=== PATIENT | male | born 1975 | race Caucasian/White ===

== ENCOUNTER → 2017-06-28 | Outpatient (CLI) | payer OTHER ==
[~2017-06-28] MED LIST: ALDACTONE25 MG PO; CHOLESTEROL MED PO; EFFER-K10 MEQ PO; FLEXERIL10 MG PO; GEMFIBROZIL600 MG PO; LASIX20 MG PO; LEVOFLOXACIN500 MG PO; Motrin,Rufen800 MG PO; NAPROSYN500 MG PO; VALTREX500 MG PO
[2017-06-28 06:10] LABS: HEMOGLOBIN 14.9 g/dl (14.0-18.0); MEAN CELL VOLUME 89.6 fl (80.0-94.0); MEAN CORPUSCULAR HGB 29.7 pg (27.0-31.0); MEAN CORPUSCULAR HGB CONC 33.1 g/dl (33.0-37.0); MEAN PLATELET VOLUME 9.9 fl (9.6-12.3); RED BLOOD COUNT 5.02 10*6/uL (4.50-5.90); RED CELL DISTRI WIDTH 13.4 % (0-14.5); WHITE BLOOD COUNT 8.1 10*3/uL (4.8-10.8)
[2017-06-28 06:44] LABS: ALBUMIN 3.7 gm/dl (3.1-4.5); ALKALINE PHOSPHATASE 65 U/L (45-117); BILIRUBIN, TOTAL 0.3 mg/dl (0.2-1.0); BUN 15 mg/dl (7-24); CARBON DIOXIDE 29 mmol/L (21-32); CHLORIDE 104 mmol/L (98-107); CHOLESTEROL 215 mg/dL (<200); EST GLOM FILT AFRICAN AMERICAN > 60 ml/min; GLUCOSE 103 mg/dL (65-99); HDL CHOLESTEROL 31 mg/dl (40-60); LDL CHOLESTEROL 124 mg/dL (9-159); POTASSIUM 3.6 mmol/L (3.5-5.1); SGOT/AST 16 IU/L (3-35); SGPT/ALT 22 U/L (12-78); SODIUM 140 mmol/L (136-145); THYROXINE (T4) TOTAL 7.8 ug/dl (4.5-12.1); TOTAL PROTEIN 7.9 gm/dL (6.4-8.2); TRIGLYCERIDES 299 mg/dl (<150); VLDL CHOLESTEROL 60 mg/dL (6-40)
== END | disposition home or self-care (01) ==
LOC: LAB 05:36
PROVIDERS: Internal Medicine
DX: E78.00 Pure hypercholesterolemia, unspecified (principal); R60.9 Edema, unspecified; E55.9 Vitamin D deficiency, unspecified

== ENCOUNTER 2017-10-01 19:33 | Emergency (ER) | payer OTHER ==
[~2017-10-01] VITALS: Ht 167.6 cm; Wt 127.0 kg
[2017-10-01] MEDS ORDERED: CEPHALEXIN500 M1 PO (20:57)
== END 2017-10-01 21:00 | disposition home or self-care (01) ==
LOC: ED 19:33
DX: S61.211A Laceration without foreign body of left index finger without damage to nail, initial encounter (principal); Z88.2 Allergy status to sulfonamides; Z88.8 Allergy status to other drugs, medicaments and biological substances; W27.8XXA Contact with other nonpowered hand tool, initial encounter; Y93.89 Activity, other specified; Y92.89 Other specified places as the place of occurrence of the external cause; Y99.8 Other external cause status

== ENCOUNTER → 2019-03-02 | Outpatient (CLI) | payer OTHER ==
[~2019-03-02] MED LIST changes: +ATORVASTATIN CA40 M1 PO; +CEPHALEXIN500 M1 PO; +FISH OIL 1,0001 EAC2 PO; +FUROSEMIDE40 MG PO; +Ipratropium Brom3 ML INH; +LEVAQUIN750 M1 PO; +LOPRESSOR25 MG PO; +OXYCODONE HCL5 MG PO; +POTASSIUM CHLO10 ME5 PO; +TYLENOL325 M2 PO
[2019-03-02 09:10] LABS: HEMATOCRIT 44.2 % (42.0-52.0); HEMOGLOBIN 13.9 g/dl (14.0-18.0); MEAN CELL VOLUME 93.2 fl (80.0-94.0); MEAN CORPUSCULAR HGB 29.3 pg (27.0-31.0); MEAN CORPUSCULAR HGB CONC 31.4 g/dl (33.0-37.0); MEAN PLATELET VOLUME 10.2 fl (9.6-12.3); RED BLOOD COUNT 4.74 10*6/uL (4.50-5.90); RED CELL DISTRI WIDTH 13.3 % (0-14.5); WHITE BLOOD COUNT 6.4 10*3/uL (4.8-10.8)
[2019-03-02 09:27] LABS: ALBUMIN 3.7 gm/dl (3.1-4.5); BUN 15 mg/dl (7-24); CHLORIDE 109 mmol/L (98-107); SODIUM 141 mmol/L (136-145)
[2019-03-02 09:39] LABS: ALKALINE PHOSPHATASE 62 U/L (45-117); CHOLESTEROL 185 mg/dL (<200); CREATININE 0.95 mg/dL (0.70-1.30); HDL CHOLESTEROL 29 mg/dl (40-60); LDL CHOLESTEROL 92 mg/dL (9-159); SGOT/AST 17 IU/L (3-35); SGPT/ALT 29 U/L (12-78); TOTAL PROTEIN 7.9 gm/dL (6.4-8.2); TRIGLYCERIDES 318 mg/dl (<150); VLDL CHOLESTEROL 64 mg/dL (6-40)
== END | disposition home or self-care (01) ==
LOC: LAB 08:13
PROVIDERS: Physician Assistant
DX: E78.5 Hyperlipidemia, unspecified (principal); R60.9 Edema, unspecified

== ENCOUNTER → 2019-03-02 | Outpatient (CLI) | payer OTHER ==
--- NOTE | ~2019-03-02 | EKG ---
[place], [place] ELECTROCARDIOGRAM REPORT NAME: SASCHA LEMUS SR UNIT #: [id number] ROOM: DOCTOR: PREM DRAFT REPORT BIRTHDATE: [birth year] [facility] Test Date: 2019-03-02 Test Time: 09:04:46 Pat Name: SASCHA LEMUS Department: Room: Gender: Requirements Analyst: Jeanna Miller : 1975 Requested By: ENA PEOPLES Order Number: [id number] Reading MD: Cisco Angel Measurements Intervals [place] Rate: 65 P: 37 [place]: 216 QRS: 66 QRSD: 99 T: 79 QT: 438 QTc: 456 Interpretive Statements Sinus rhythm Prolonged [place] interval Baseline wander in lead(s) V5 No previous ECG available for comparison Electronically Signed On 03-04-2019 4:52:06 PDT by Cisco Angel CM:EKGRPT:ELECTROCARDIOGRAM REPORT [id number] ENA AMARO DRAFT REPORT ENA PEOPLES
== END | disposition home or self-care (01) ==
LOC: LAB 08:11
DX: Z01.818 Encounter for other preprocedural examination (principal); M75.101 Unspecified rotator cuff tear or rupture of right shoulder, not specified as traumatic

== ENCOUNTER 2019-03-12 19:42 | Inpatient (IN) | payer OTHER ==
[~2019-03-12] VITALS: Ht 167.6 cm; Wt 152.0 kg
--- NOTE | ~2019-03-12 | CON ---
[place], [place] REPORT OF CONSULTATION NAME: SASCHA LEMUS SR [facility] #: [id number] UNIT #: [id number] ROOM: 412 DOCTOR: JOHNNIE JOHNSTON MDLOIDA BIRTHDATE: [birth year] DOS: 03/13/2019 PULMONARY CONSULTATION, EVALUATION AND MANAGEMENT CONSULTATION REQUESTED BY: Hospitalist service. REASON FOR CONSULTATION: For assessment of acute pneumonia and abnormal respiratory symptoms. HISTORY OF PRESENT ILLNESS: A 43-year-old white male patient who has been unknown to me. The patient has been noted with the rotator cuff surgery that was performed for the patient in one of the hospitals in [facility] by Dr. Mccartney. The surgery was completed for this patient and he was discharged home. The patient was noted with symptoms of increased shortness of breath after he was discharged. He has been complaining of pain in the chest as well, which are described across the chest. The patient was reporting symptoms of coughing with the sputum expectoration as well. The patient was admitted to the hospital. The patient's chest x-ray noted abnormal. The patient was reported with finding of acute pneumonia in the right lung. The patient has been ordered CTA of the chest that could not be done, as the patient unable to fit into the CT scan machine. So, CT scan was cancelled and that the patient has been ordered V/Q scan by the primary care attending, which was noted negative for pulmonary embolism. The patient was also given the Lovenox 1 mg/kg body weight for the patient on the diagnosis of pulmonary embolism excluded. He has reported reduction in symptoms of shortness of breath, cough has been noted mild without any sputum expectoration at the present time. Denies symptoms of chest pain at this time. REVIEW OF SYSTEMS: CONSTITUTIONAL: He does report symptoms of fatigue and tiredness. Denies any fever or chills at home. EYES: Denies burning, redness, or tenderness. EARS, NOSE, AND THROAT SYMPTOMS: Denies sore throat, hoarseness, otalgia, postnasal drainage or epistaxis. CARDIOVASCULAR SYSTEM: Denies anginal pain, edema, or pain of lower extremities. GASTROINTESTINAL: Denies dysphagia, nausea, vomiting, diarrhea, abdominal pain, hematemesis, melena or hematochezia. SKIN: Denies any lesions or rashes. MUSCULOSKELETAL: Recent surgery of the shoulder, which required the sling on the right side and has an epidural anesthesia, which was noted in progress after discharge from [facility] for pain management. CENTRAL NERVOUS SYSTEM: Denies dizziness, headache, diplopia or syncopal episodes. Remaining systems were reviewed. They were noted all negative. PAST MEDICAL HISTORY: 1. Noted rotator cuff tear bilaterally with the current surgery of the left rotator cuff tear for the patient 2 days ago in [facility] by Dr. Mccartney. [place], [place] REPORT OF CONSULTATION NAME: SASCHA LEMUS SR UNIT #: [id number] ROOM: [facility] DOCTOR: LOIDA TATUM MD BIRTHDATE: [birth year] 2. Chronic obesity. 3. Heavy nicotine dependence history. 4. Hyperlipidemia. PAST SURGICAL HISTORY: 1. Dental surgery. 2. Tonsillectomy as child. 3. Status post right rotator cuff surgery. SOCIAL HISTORY: The patient lives at home. He has been noted tobacco use 2 packs of cigarettes per day since teenager. Denies history of alcohol use. FAMILY HISTORY: The patient's father with complication of myocardial infarction and the mother also with complication related to myocardial infarction. HOME MEDICATIONS: Listed as potassium chloride, OxyContin, [place] 3, oral Lasix, Lipitor, and Tylenol. DRUG ALLERGIES: 1. SULFA DRUGS. 2. VITAMIN D3. CURRENT MEDICATIONS: Administered for the patient on this hospitalization were reviewed and noted as Lipitor, Mucinex, Solu-Medrol 60 mg every 8 hours, IV vancomycin, IV Zosyn and Levaquin. PHYSICAL EXAMINATION: GENERAL: This is a 43-year-old male currently sitting on the bed this morning of assessment. VITAL SIGNS: Height of 5 feet 6 inches, weight of 335 pounds, BMI of 54 with severe morbid obesity. The temperature noted normal, respiratory rate of 29-18, heart rate of 98-110, blood pressure 142/82-157/94. Pulse oxygen saturation on 3 liters nasal cannula at rest on room air 95% saturation recorded. HEENT: Examination shows head was atraumatic with chronic obesity. Decreased posterior pharyngeal space, high tongue base, crowding of soft tissue structures. CARDIOVASCULAR: S1, S2 audible. LUNGS: Decreased breath sounds in the right lower lung. Remaining lung was clear of any wheezing or crackles. ABDOMEN: Soft, nontender. Bowel sounds present. EXTREMITIES: The patient was noted with immobilization of the right upper extremity. No other gross deformities. CENTRAL NERVOUS SYSTEM: The patient's cranial nerves 2-12 intact with limited exam. SKIN: Visible skin, no lesions or rashes seen. LABORATORY DATA: The troponin yesterday on admission was normal. CBC that was done yesterday has a normal hemoglobin, hematocrit and platelets. PT/PTT was noted as normal. CMP of 03/12/2019 for this patient has normal BUN and [place], [place] REPORT OF CONSULTATION NAME: SASCHA LEMUS SR UNIT #: [id number] ROOM: 412 DOCTOR: JOHNNIE JOHNSTON MD,LOIDA BIRTHDATE: [birth year] creatinine, glucose 182. AST, ALT mildly elevated. Lactic acid 1.1. BMP of the patient that was done this morning, normal BUN and creatinine, glucose mildly elevated. The CBC of the patient this morning, WBC count 12.8, hemoglobin 13.1, platelet count was normal. Chest x-ray were noted elevation of right hemidiaphragm and possible combination with area of atelectasis, small pleural fluid. Ultrasound of the chest was performed on right side of the patient shows area of consolidation and there was no evidence of significant pleural fluid, very small pleural fluid was noted. V/Q scan that was completed yesterday was noted with a low probability for pulmonary embolism. The patient stated that he has a chest x-ray, which were done for this patient in [facility], which I did review for the patient was actually of the shoulder, not of the chest, unable to assess further because of the lack of the PA and lateral chest x-ray. IMPRESSION: 1. The patient will be currently admitted to the hospital with finding of atelectasis and possibility of elevation of hemidiaphragm, acute pneumonia, community-acquired infection would be considered. 2. The patient with a recent surgery of the right shoulder as well. 3. Morbid obesity as well by history. 4. Chronic heavy nicotine abuse without any known diagnosis of chronic obstructive pulmonary disease or bronchial asthma. PLAN OF MANAGEMENT: At this time, the patient would be ordered discontinuation of the Solu-Medrol as well as the broad-spectrum intravenous antibiotics. The community-acquired infection will be treated for the patient at this time with the continuation of the Levaquin. The patient has a primary antibiotic. Addition of the vancomycin for the patient in case if the patient would be noted with abnormal culture results. CT scan of the chest certainly cannot be done for the patient for further assessment at this time and will place on hold. Possibility of right diaphragmatic paralysis has been also considered in the differential diagnosis. Continue bronchodilator for this patient as well to help mobilize secretions. Usual care with other additional treatment changes will be done based on progression of illness. Follow up with the chest x-ray in the morning to reassess. Consider home discharge on oral antibiotics for the patient based on the further improvement in the respiratory symptoms and status and review of the other data information once become available, especially the blood cultures. Assessment and management was discussed with Dr. Jefry William who is the attending for this patient today as well personally. [place], [place] REPORT OF CONSULTATION NAME: MARIAH ROBERTSSASCHA Kaia UNIT #: [id number] ROOM: 412 DOCTOR: LOIDA TATUM MD BIRTHDATE: [birth year] LOIDA BLAIR MD CM:CONSTR:REPORT OF CONSULTATION 1400 03/27/19 0842 interface
--- NOTE | ~2019-03-12 | CON ---
[place], [place] REPORT OF CONSULTATION [id number] #: [id number] ROOM: 412 DOCTOR: JOSEPH MCWILLIAMS MD BIRTHDATE: [birth year] DOS: 03/13/2019 REASON FOR CONSULTATION: Sinus tachycardia, shortness of breath. HISTORY OF PRESENT ILLNESS: The patient is a 43-year-old gentleman with history of moderate obesity, dyslipidemia, presented to the hospital for shortness of breath which is on exertion. He recently had right wrist rotator cuff surgery a couple of days ago in [place]. He did have some cough with some sputum production as well as complaining of some achy chest pain in the midsternal area at rest. No associated symptoms. The pain is like an ache and lasts for a few seconds to minutes, occasional radiation to the left shoulder and back. Cardiology consulted for further recommendation due to his sinus tachycardia but he denies any exertional chest pain or palpitations, he only complained of shortness of breath, which is somewhat better now. No palpitation, no dizziness, no PND, no orthopnea. No fever and chills. No nausea, vomiting, diarrhea. No bladder symptoms. No neurologic symptoms. REVIEW OF SYSTEMS: Review of the 10 systems negative except as mentioned above. PAST MEDICAL HISTORY: 1. Hypertension. 2. Dyslipidemia. 3. Morbid obesity. 4. Chronic edema. PAST SURGICAL HISTORY: History of tonsillectomy and a right rotator cuff repair. SOCIAL HISTORY: Does not smoke or drink, does not use illicit drugs. He quit smoking several years ago. FAMILY HISTORY: Father in his 50s from heart attack. Mother at the age of 69 from heart attack. She had history of hypertension, diabetes. ALLERGIES: The patient is allergic to SULFA and VITAMIN D3. HOME MEDICATIONS: Reviewed. PHYSICAL EXAMINATION: VITAL SIGNS: Blood pressure 142/82, pulse 110, respiratory rate was 24, weight 151.9 kilos, BMI 54. GENERAL: Alert, comfortable, in no acute distress. HEENT: Pupils are round and equal. No jaundice. NECK: Supple, no distended neck veins, no carotid bruit. CHEST: Symmetrical, nontender. LUNGS: A few scattered rhonchi, diminished at bases. HEART: Regular rhythm, slightly tachycardic, no S3, no palpable thrills. I did not appreciate any murmurs, but distant heart sounds. ABDOMEN: Morbidly obese, nontender. Bowel sounds normal. EXTREMITIES: Showed 1+ edema. Distal pulses palpable. [place], [place] REPORT OF CONSULTATION NAME: SASCHA LEMUS SR UNIT #: [id number] ROOM: [facility] DOCTOR: JOSEPH MCWILLIAMS MD BIRTHDATE: [birth year] SKIN: Warm and dry. No cyanosis, no clubbing. RECTAL: Deferred. GENITOURINARY: Deferred. NEUROLOGIC: Alert, oriented. No focal neurologic deficit. PSYCHIATRIC: The patient is alert with good mood and affect. REVIEW OF THE DIAGNOSTIC TESTS: EKG, sinus tachycardia with some early repolarization. CBC, chemistry reviewed. Cardiac troponins are negative x 3. His stress test in 05/2016, unremarkable. Echo from 05/2016 unremarkable. IMPRESSION: 1. Sinus tachycardia, borderline tachycardia, asymptomatic, due to his dyspnea. 2. Shortness of breath, acute congestive heart failure, need to rule out pulmonary emboli. 3. Chronic diastolic heart failure. 4. Morbid obesity. 5. Dyslipidemia. 6. Acute respiratory failure. 7. Recent right shoulder surgery. 8. Possible pneumonia. RECOMMENDATIONS: 1. Start low-dose beta blockers and watch the heart rate and blood pressures. 2. We need to rule out pulmonary emboli and currently the patient on therapeutic dose of Lovenox. 3. The 2D echo was done and the patient had a finding showed normal LV function. 4. No further cardiac testing. Continue to watch his heart rate and blood pressures on his low dose beta blockers. 5. Above treatment and plan discussed with the patient and all questions answered. 6. No family at bedside at the time of my examination. JOSEPH MCWILLIAMS MD CM:CONSTR:REPORT OF CONSULTATION 1617 03/14/19 0613 interface
--- NOTE | ~2019-03-12 | PR ---
[place], [place] PROGRESS NOTE [id number] #: [id number] ROOM: 412 DOCTOR: JOHNNIE JOHNSTON MD,LOIDA BIRTHDATE: [birth year] DOS: 03/14/2019 PULMONARY PROGRESS NOTE SUBJECTIVE: He has been noted much improvement in respiratory symptoms. Shortness of breath is improving. There was mild cough, but no sputum expectoration, symptoms of chest pain, fever or chills. OBJECTIVE: VITAL SIGNS: This morning, normal temperature, respiratory rate 20, heart rate 108, blood pressure 136/92. Pulse oxygen saturation on room air was 95% saturation. HEENT: Head was atraumatic, eyes nonicterus. NECK: Supple. CARDIOVASCULAR: S1 and S2 audible. LUNGS: The patient was without any wheezing or crackles. Decreased breath sounds in the right lower portion of the lungs still persist. ABDOMEN: Soft and obese. EXTREMITIES: The patient was noted without any acute edema. LABORATORY AND DIAGNOSTIC DATA: Chest x-ray that was done PA and lateral view this morning was reviewed, shows atelectasis and/or infiltration combination in the right middle and right lower lobe and elevation of right hemidiaphragm still considered. IMPRESSION: The patient is currently with acute pneumonia, which has been treated, clinically responding to treatment. He could be discharged home with outpatient followup for the current abnormal finding to obtain a CT scan of the chest as necessary, later on follow up chest x-ray to determine if there is diaphragm paralysis or elevated or other etiologies. Supportive therapy, plan of management, and care plan of treatment. LOIDA BLAIR MD CM:PNTRANS 1315 0450 LOIDA JOHNSTON MD 03/15/19 0448 interface
--- NOTE | ~2019-03-12 | EKG ---
[place], [place] ELECTROCARDIOGRAM REPORT NAME: SASCHA LEMUS SR UNIT #: [id number] ROOM: 412 DOCTOR: PREM DRAFT REPORT BIRTHDATE: [birth year] [facility] Test Date: 2019-03-12 Test Time: 22:43:50 Pat Name: SASCHA LEMUS Department: Room: 412 Gender: M [employer] Attendant: Caroline Craig : 1975 Requested By: ISIDRO KENT Order Number: [id number] Reading MD: Cisco Angel Measurements Intervals [place] Rate: 109 P: 39 GA: 183 QRS: 57 QRSD: 95 T: 45 QT: 336 QTc: 453 Interpretive Statements Sinus tachycardia Compared to ECG 03/02/2019 09:04:46 Sinus rhythm no longer present First degree AV block no longer present Electronically Signed On 03-15-2019 8:58:30 PDT by Cisco Angel CM:EKGRPT:ELECTROCARDIOGRAM REPORT [id number] ISIDRO KENT MD EPIPHANY DRAFT REPORT ISIDRO KENT MD
--- NOTE | ~2019-03-12 | EKG ---
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: Yin Godinez : 1975 Requested By: ISIDRO KENT Order Number: [id number] Reading MD: Cisco Angel Measurements Intervals [place] Rate: 107 P: 46 DE: 188 QRS: 84 QRSD: 106 T: 24 QT: 354 QTc: 473 Interpretive Statements Sinus tachycardia Abnormal R-wave progression, late transition ST elev, probable normal early repol pattern Baseline wander in lead(s) I,II,aVR,aVL,aVF,V2,V3,V5,V6 Compared to ECG 03/02/2019 09:04:46 ST (T wave) deviation now present Sinus rhythm no longer present First degree AV block no longer present Electronically Signed On 03-15-2019 8:59:22 PDT by Cisco Angel CM:EKGRPT:ELECTROCARDIOGRAM REPORT [id number] ISIDRO KENT MD EPIPHANY DRAFT REPORT ISIDRO KENT MD
--- NOTE | ~2019-03-12 | EKG ---
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
[~2019-03-12 19:42] MED LIST changes: -ATORVASTATIN CA40 M1 PO; -FISH OIL 1,0001 EAC2 PO; -FUROSEMIDE40 MG PO; -Ipratropium Brom3 ML INH; -LEVAQUIN750 M1 PO; -LOPRESSOR25 MG PO; -OXYCODONE HCL5 MG PO; -POTASSIUM CHLO10 ME5 PO; -TYLENOL325 M2 PO
[2019-03-12 19:54] VITALS: BP 156/78
[2019-03-12] MEDS ORDERED: POTASSIUM CHLO10 ME5 PO (19:56)
[2019-03-12] MEDS ORDERED: OXYCODONE HCL5 MG PO (19:56)
[2019-03-12] MEDS ORDERED: FUROSEMIDE40 MG PO (19:57)
[2019-03-12] MEDS ORDERED: ATORVASTATIN CA40 M1 PO (19:57)
[2019-03-12 20:00] LABS: BASO # 0.1 10*3/uL (0.0-0.1); BASO % 0.5 % (0.0-1.0); EOS # 0.1 10*3/uL (0.0-0.4); EOS % 0.8 % (1.0-4.0); HEMATOCRIT 42.5 % (42.0-52.0); HEMOGLOBIN 13.8 g/dl (14.0-18.0); LYMPH # 2.2 10*3/uL (1.3-4.4); LYMPH % 21.1 % (27.0-41.0); MEAN CELL VOLUME 92.6 fl (80.0-94.0); MEAN CORPUSCULAR HGB 30.1 pg (27.0-31.0); MEAN CORPUSCULAR HGB CONC 32.5 g/dl (33.0-37.0); MEAN PLATELET VOLUME 9.9 fl (9.6-12.3); MONO # 0.9 10*3/uL (0.1-1.0); MONO % 8.7 % (3.0-9.0); NEUT # 7.2 10*3/uL (2.3-7.9); PLATELET COUNT AUTOMATED 286 10*3/uL (130-400); RED BLOOD COUNT 4.59 10*6/uL (4.50-5.90); RED CELL DISTRI WIDTH 13.6 % (0-14.5); WHITE BLOOD COUNT 10.6 10*3/uL (4.8-10.8)
[2019-03-12 20:16] LABS: ACT PARTIAL THROMBO TIME 23.1 SECONDS (20.8-31.5); INTERNATIONAL NORM RATIO 0.9 (2.0-3.5)
[2019-03-12 20:19] LABS: ALBUMIN 3.6 gm/dl (3.1-4.5); ALKALINE PHOSPHATASE 75 U/L (45-117); BUN 12 mg/dl (7-24); CHLORIDE 105 mmol/L (98-107); CREATININE 1.05 mg/dL (0.70-1.30); POTASSIUM 3.9 mmol/L (3.5-5.1); SGOT/AST 88 IU/L (3-35); SGPT/ALT 94 U/L (12-78); SODIUM 139 mmol/L (136-145); TOTAL PROTEIN 7.9 gm/dL (6.4-8.2); TROPONIN I < 0.015 ng/ml (<0.045)
--- NOTE | 2019-03-12 20:19 | NUR ---
PATIENT UP TO RESTROOM AND PROVIDING WITH URINE SPECIMEN. DENIES CHEST PAIN AT THIS TIME. WILL CONTINUE TO MONITOR.
[2019-03-12 21:32] VITALS: BP 148/69
[2019-03-12 23:04] VITALS: BP 147/71
--- NOTE | 2019-03-12 23:05 | NUR ---
RIGHT SHOULDER SURGICAL WOUND THAT WAS DRESSED YESTERDAY. NO PHOTO TAKEN AT THIS TIME.
[2019-03-12] MEDS ORDERED: TYLENOL325 M2 PO (23:55)
[2019-03-12] MEDS ORDERED: FISH OIL 1,0001 EAC2 PO (23:59)
[2019-03-13] VITALS: BP 157/94
--- NOTE | 2019-03-13 00:25 | NUR ---
NOTIFIED DR HAY OF PATIENTS MED REC UP TO DATE.
--- NOTE | 2019-03-13 03:22 | NUR ---
NOTIFIED DR PRATHER OF PATIENT NEEDING HOME OXY FOR SHOULDER PAIN. STATED HE WOULD TAKE CARE OF IT.
[2019-03-13 05:52] LABS: BASO % 0.2 % (0.0-1.0); EOS % 0.1 % (1.0-4.0); HEMATOCRIT 41.6 % (42.0-52.0); HEMOGLOBIN 13.1 g/dl (14.0-18.0); LYMPH % 7.5 % (27.0-41.0); MEAN CELL VOLUME 92.4 fl (80.0-94.0); MEAN CORPUSCULAR HGB 29.1 pg (27.0-31.0); MEAN CORPUSCULAR HGB CONC 31.5 g/dl (33.0-37.0); MEAN PLATELET VOLUME 10.1 fl (9.6-12.3); MONO # 0.2 10*3/uL (0.1-1.0); MONO % 1.8 % (3.0-9.0); NEUT # 11.5 10*3/uL (2.3-7.9); NEUT % 89.6 % (47.0-73.0); PLATELET COUNT AUTOMATED 284 10*3/uL (130-400); RED CELL DISTRI WIDTH 13.7 % (0-14.5); WHITE BLOOD COUNT 12.8 10*3/uL (4.8-10.8)
[2019-03-13 06:04] LABS: BUN 11 mg/dl (7-24); CHLORIDE 106 mmol/L (98-107); CHOLESTEROL 179 mg/dL (<200); CREATININE 1.03 mg/dL (0.70-1.30); HDL CHOLESTEROL 40 mg/dl (40-60); LDL CHOLESTEROL 113 mg/dL (9-159); PHOSPHOROUS 1.6 mg/dL (2.5-4.9); POTASSIUM 3.5 mmol/L (3.5-5.1); SODIUM 139 mmol/L (136-145); TRIGLYCERIDES 132 mg/dl (<150); VLDL CHOLESTEROL 26 mg/dL (6-40)
--- NOTE | 2019-03-13 06:13 | NUR ---
NUCLEAR MED HERE TO GET PATIENT AT THIS TIME.
--- NOTE | 2019-03-13 06:50 | NUR ---
PATIENT RETURNED FROM LUNG SCAN AT THIS TIME.
--- NOTE | 2019-03-13 07:27 | NUR ---
MARIAH ROBERTSSASCHA [id number] Please refer to the physician's history and physical for past medical history, comorbid conditions, and allergies. Diagnosis: DYSPNEA SEPSIS PNEUMONIA Luis Fernando Score: 22,LOW OR NO RISK WOUND DESCRIPTIONS: Patient has dressing intact to right shoulder. Patient stated that he had surgery on 03/11/19 and is not to remove the dressing until saturday. Patient stated Dr. Mccartney performed the surgery at [facility] and has a follow up appointment with Dr. Mccartney on 03/23/19. Surface the patient is resting on: Isoflex SKIN PREVENTION RECOMMENDATION: 1. Pressure redistribution support surface as appropriate 2. Elevate heels 3. Remove boots/TEDS every shift and reapply 4. Head of bed 30 degrees as tolerated 5. Assess nutrition and hydration 6. Manage moisture 7. Avoid the use of containment devices while in bed 8. Use absorptive products on surfaces limit layers of linens on bed 9. Turn and reposition every 1-2 hours in bed and every 1 hour in chair as tolerated 10. Weight shifts every 15 minutes while up in chair 11. Offloading with pillows or device to keep heels elevated off bed 12. Monitor skin at least every shift 13. Inspect under medical devices twice a day WOUND TREATMENT RECOMMENDATIONS: Keep dressing intact to right shoulder and keep follow up appointment on 03/23/[address] Mccartney
[2019-03-13 08:00] VITALS: BP 120/80
--- NOTE | 2019-03-13 08:00 | NUR ---
0903: MEDICATED WITH PO TYLENOL ORDERED PER PT REQUEST FOR C/O PAIN TO R SHOULDER. 0800: R SHOULDER DRESSING D/I W/ BRACE IN PLACE. ROPIVOCAINE LINE/DRESSING D/I AND PUMP SEEMS TO BE FUNCTIONING WITH 161.5CC RESIDUAL. 1030: IN ROOM, ECHO BEING DONE.
--- NOTE | 2019-03-13 08:11 | NUR ---
DR BLAIR NOTIFIED OF CONSULT.
--- NOTE | 2019-03-13 08:11 | NUR ---
MESSAGE LEFT FOR DR FRANCE CONSULT.
--- NOTE | 2019-03-13 09:00 | NUR ---
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 Patient states lives at with family. There are few steps in the home. Physician: melina hale [facility]acy: [facility] Home health services: none Patient's level of ADLs: INDEPENDENT Patient has working utilities: all working DME: none Follow-up physician's appointment after d/c: will be made by hospitalist nurse director upon discharge Does patient want to access PORTAL?: no Discharge plan discussed with patient, patient lives at home with , he is independent in adls and ambulation, he recently had shoulder surgery and his has been helping him, patient states he will be going home when able and denies any home needs. MILLIE GIBSON
--- NOTE | 2019-03-13 09:25 | NUR ---
PATIENT INSTRUCTED ON INCENTIVE SPIROMETRY, ABLE TO GENERATE 1250 ML BREATHS. ORDERED Q1 HOURS, 10 TIMES.
--- NOTE | 2019-03-13 11:58 | NUR ---
MEDICATED WITH PO OXY ORDERED PER PT REQUEST FOR C/O PAIN TO R SHOULDER RATED 2/10. TYLENOL WAS EFFECTIVE PER PT.
[2019-03-13 12:00] VITALS: BP 142/82
--- NOTE | 2019-03-13 13:33 | NUR ---
MEDICATION EFFECTIVE FOR PAIN.
--- NOTE | 2019-03-13 14:18 | NUR ---
24 HR chart check completed.
[2019-03-13 16:00] VITALS: BP 127/69
--- NOTE | 2019-03-13 16:09 | NUR ---
Medicated with po tylenol as ordered per pt request for c/o r shoulder pain rated 3/10.
--- NOTE | 2019-03-13 18:07 | NUR ---
MEDICATION EFFECTIVE FOR PAIN.
--- NOTE | 2019-03-13 19:25 | NUR ---
REPORT OBTAINED FROM LANRE-PRASAD. PATIENT IS AWAKE AND ALERT. STATES THAT HE NEEDS A PAIN PILL D/I RIGHT SHOULDER PAIN. NO DISTRESS NOTED, RESP ARE ERND ON ROOM AIR. PATIENT NOTED TO HAVE NERVE BLOCK CATH TO RIGHT SIDED NECK AREA, PATIENT PRESENT WITH IT ON ADMISSION, PLACED BY DOCTOR IN [facility]. NURSE STATES THAT IT NEEDS TO BE REMOVE AFTER MEDICATION IS COMPLETED, PATIENTS IS INSTRUCTED ON HOW TO DO SO BUT WILL NOT BE AVAILABLE TONIGHT. BED IS LOCKED IN LOWEST POSITION, CALL LIGHT LEFT WIHTIN REACH.
--- NOTE | 2019-03-13 19:29 | NUR ---
PATIENT MEDICATED WITH OXY-IR FOR C.O 06/03 PAIN TO RIGHT SHOULDER. WILL MONITOR
[2019-03-13 20:00] VITALS: BP 138/80
--- NOTE | 2019-03-13 20:29 | NUR ---
OXY-IR EFFECTIVE FOR RIGHT SHOULDER PAIN.
--- NOTE | 2019-03-13 21:23 | NUR ---
PATIENT MEDICATED WITH TYLENOL FOR C/O RIGHT SHOULDER PAIN 02/01. WILL MONITOR
--- NOTE | 2019-03-13 23:25 | NUR ---
INFORMED THAT PATIENT CAME WITH NERVE BLOCK CATHETER AND HIM/ WERE INSTRUCTED ON HOW TO REMOVE AFTER MEDICATION HAD BEEN COMPLETED. MEDICATION WILL BE COMPLETED DURING THIS NURSE SHIFT AND WAS INFORMED BY PRIOR NURSE THAT IT HAD TO BE REMOVED. STATED THAT I WAS UNSURE IF THIS WAS PART OF SCOPE OF PRACTICE FOR [place] SINCE NERVE BLOCK WAS PLACED IN [place] AT [facility], ALSO I DO NOT SEE A POLICY GEARED TOWARDS THIS PROCEDURE. ALSO, INFORMED THAT THERE WAS NO ORDER PRESENT FROM DOCTOR HERE TO REMOVE. DR. ALY STATED THAT HE WAS UNSURE. IF MEDICATION DOES RUN OUT ON THIS SHIFT, LEAVE CATH UNTOUCHED FOR WHEN SHE BECOMES AVAILABLE.
[2019-03-14] VITALS: BP 153/88
--- NOTE | 2019-03-14 03:21 | NUR ---
24Shift chart check completed.
--- NOTE | 2019-03-14 04:16 | NUR ---
PATIENT MEDICATED WITH OXY-IR FOR C/O 8/ PAIN TO RIGHT SHOULDER. WILL MONITOR
--- NOTE | 2019-03-14 04:29 | NUR ---
INFORMED THAT NERVE BLOCK MEDICATION ADMINISTRATION HAS BEEN COMPLETED. STATED HE WILL BE UP TO REMOVE.
--- NOTE | 2019-03-14 05:16 | NUR ---
OXY-IR EFFECTIVE FOR RIGHT SHOULDER PAIN.
--- NOTE | 2019-03-14 06:09 | NUR ---
PATIENT MEDICATED WITH TYLENOL FOR RIGHT SHOULDER PAIN 5/10. WILL MONITOR
[2019-03-14 06:32] LABS: BASO # 0.1 10*3/uL (0.0-0.1); BASO % 0.4 % (0.0-1.0); EOS % 0.1 % (1.0-4.0); HEMATOCRIT 39.8 % (42.0-52.0); HEMOGLOBIN 12.8 g/dl (14.0-18.0); LYMPH # 2.9 10*3/uL (1.3-4.4); LYMPH % 19.7 % (27.0-41.0); MEAN CELL VOLUME 91.5 fl (80.0-94.0); MEAN CORPUSCULAR HGB 29.4 pg (27.0-31.0); MEAN CORPUSCULAR HGB CONC 32.2 g/dl (33.0-37.0); MEAN PLATELET VOLUME 10.4 fl (9.6-12.3); MONO # 0.9 10*3/uL (0.1-1.0); MONO % 5.8 % (3.0-9.0); NEUT # 10.7 10*3/uL (2.3-7.9); NEUT % 73.4 % (47.0-73.0); PLATELET COUNT AUTOMATED 273 10*3/uL (130-400); RED BLOOD COUNT 4.35 10*6/uL (4.50-5.90); RED CELL DISTRI WIDTH 13.9 % (0-14.5); WHITE BLOOD COUNT 14.6 10*3/uL (4.8-10.8)
--- NOTE | 2019-03-14 06:40 | NUR ---
AND HÉCTOR PRESENT IN ROOM, REMOVED NERVE BLOCK CATH. STATED THAT NO DRESSING WAS NEEDED.
[2019-03-14 06:48] LABS: BUN 13 mg/dl (7-24); CHLORIDE 111 mmol/L (98-107); CREATININE 0.82 mg/dL (0.70-1.30); POTASSIUM 4.2 mmol/L (3.5-5.1); SODIUM 142 mmol/L (136-145)
--- NOTE | 2019-03-14 07:09 | NUR ---
TYLENOL EFFECTIVE FOR RIGHT SHOULDER PAIN.
[2019-03-14 08:00] VITALS: BP 136/76
--- NOTE | 2019-03-14 11:06 | NUR ---
MEDICATED WITH OXY-IR PER ORDER NAD REQUEST.
[2019-03-14 12:00] VITALS: BP 136/92
--- NOTE | 2019-03-14 12:30 | NUR ---
OXY IR HELPED.
[2019-03-14] MEDS ORDERED: LOPRESSOR25 MG PO (12:53)
[2019-03-14] MEDS ORDERED: Ipratropium Brom3 ML INH (13:20)
[2019-03-14] MEDS ORDERED: LEVAQUIN750 M1 PO (13:20)
--- NOTE | 2019-03-14 15:02 | NUR ---
PATIENT DISCHARGED TO HOME.
== END 2019-03-14 15:02 | disposition home or self-care (01) | DRG 871 ==
LOC: ED 19:42 → 4E 23:02 → EDHOLD 23:02 → 4E 23:17
PROVIDERS: Emergency Medicine Emergency Medical Services; Family Medicine; Student in an Organized Health Care Education/Training Program; ADMIT Emergency Medicine
DX: A41.9 Sepsis, unspecified organism (principal); J18.1 Lobar pneumonia, unspecified organism; J96.01 Acute respiratory failure with hypoxia; I50.33 Acute on chronic diastolic (congestive) heart failure; Z68.43 Body mass index [BMI] 50.0-59.9, adult; J98.11 Atelectasis; D72.810 Lymphocytopenia; I11.0 Hypertensive heart disease with heart failure; E83.41 Hypermagnesemia; R74.0 Nonspecific elevation of levels of transaminase and lactic acid dehydrogenase [LDH]; F17.210 Nicotine dependence, cigarettes, uncomplicated; R73.9 Hyperglycemia, unspecified; E78.5 Hyperlipidemia, unspecified; E66.01 Morbid (severe) obesity due to excess calories; R60.9 Edema, unspecified; Z88.2 Allergy status to sulfonamides; Z88.8 Allergy status to other drugs, medicaments and biological substances; Z82.49 Family history of ischemic heart disease and other diseases of the circulatory system; Z82.3 Family history of stroke; Z83.3 Family history of diabetes mellitus; Z79.899 Other long term (current) drug therapy

== ENCOUNTER → 2019-09-10 | Outpatient (CLI) | payer OTHER ==
[~2019-09-10] MED LIST changes: +ATORVASTATIN CA40 M1 PO; +FISH OIL 1,0001 EAC2 PO; +FUROSEMIDE40 MG PO; +Ipratropium Brom3 ML INH; +LEVAQUIN750 M1 PO; +LOPRESSOR25 MG PO; +OXYCODONE HCL5 MG PO; +POTASSIUM CHLO10 ME5 PO; +TYLENOL325 M2 PO
== END | disposition home or self-care (01) ==
LOC: US 12:23
DX: R60.9 Edema, unspecified (principal)

== ENCOUNTER → 2020-04-11 | Outpatient (CLI) | payer OTHER | END | disposition home or self-care (01) | LOC: RAD 06:33 | DX: Z01.818 Encounter for other preprocedural examination (principal); Z01.810 Encounter for preprocedural cardiovascular examination; M25.511 Pain in right shoulder; E78.5 Hyperlipidemia, unspecified; G89.29 Other chronic pain; R60.9 Edema, unspecified ==

== ENCOUNTER → 2020-11-19 | Outpatient (CLI) | payer OTHER | END | disposition home or self-care (01) | LOC: COVID19 10:38 | PROVIDERS: ATTEND Internal Medicine | DX: Z20.828 Contact with and (suspected) exposure to other viral communicable diseases (principal) ==

== ENCOUNTER → 2020-12-27 | Outpatient (CLI) | payer OTHER | END | disposition home or self-care (01) | LOC: COVID19 15:50 | PROVIDERS: ATTEND Internal Medicine | DX: Z20.822 Contact with and (suspected) exposure to COVID-19 (principal) ==

== ENCOUNTER → 2021-06-10 | Outpatient (CLI) | payer OTHER ==
[2021-06-10 06:41] LABS: HEMATOCRIT 44.6 % (42.0-52.0); MEAN CORPUSCULAR HGB 29.6 pg (27.0-31.0); MEAN CORPUSCULAR HGB CONC 32.5 g/dl (33.0-37.0); RED BLOOD COUNT 4.9 10*6/uL (4.50-5.90); WHITE BLOOD COUNT 7.5 10*3/uL (4.8-10.8)
[2021-06-10 07:01] LABS: ALBUMIN 3.6 gm/dl (3.1-4.5); ALKALINE PHOSPHATASE 79 U/L (45-117); BUN 9 mg/dl (7-24); CHLORIDE 107 mmol/L (98-107); CHOLESTEROL 145 mg/dL (<200); LDL CHOLESTEROL 74 mg/dL (9-159); POTASSIUM 4.2 mmol/L (3.5-5.1); SGOT/AST 25 IU/L (3-35); SGPT/ALT 50 U/L (12-78); SODIUM 139 mmol/L (136-145); TOTAL PROTEIN 7.9 gm/dL (6.4-8.2); TRIGLYCERIDES 237 mg/dl (<150)
== END | disposition home or self-care (01) ==
LOC: LAB 06:14
PROVIDERS: ATTEND Physician Assistant
DX: E78.5 Hyperlipidemia, unspecified (principal); R60.9 Edema, unspecified

== ENCOUNTER 2023-02-18 14:18 | Emergency (ER) | payer OTHER ==
[~2023-02-18] VITALS: Wt 138.3 kg
[2023-02-18] MEDS ORDERED: CYCLOBENZAPRINE10 MG PO (15:00)
[2023-02-18] MEDS ORDERED: IBU800 M2 PO (15:00)
== END 2023-02-18 15:07 | disposition home or self-care (01) ==
LOC: ED 14:18
DX: S29.012A Strain of muscle and tendon of back wall of thorax, initial encounter (principal); M54.2 Cervicalgia; E78.5 Hyperlipidemia, unspecified; Z88.2 Allergy status to sulfonamides; Z88.8 Allergy status to other drugs, medicaments and biological substances; Z90.89 Acquired absence of other organs; Z98.890 Other specified postprocedural states; V43.52XA Car driver injured in collision with other type car in traffic accident, initial encounter; Y93.89 Activity, other specified; Y92.410 Unspecified street and highway as the place of occurrence of the external cause; Y99.8 Other external cause status

== ENCOUNTER 2023-09-04 16:11 | Emergency (ER) | payer OTHER ==
[~2023-09-04] VITALS: Ht 167.6 cm; Wt 145.1 kg
[~2023-09-04 16:11] MED LIST changes: +CYCLOBENZAPRINE10 MG PO; +IBU800 M2 PO
[2023-09-04 17:17] LABS: BASO # 0.1 10*3/uL (0.0-0.1); BASO % 0.8 % (0.0-1.0); EOS # 0.3 10*3/uL (0.0-0.4); EOS % 3.4 % (1.0-4.0); HEMATOCRIT 44.9 % (42.0-52.0); LYMPH # 2.5 10*3/uL (1.3-4.4); MEAN CELL VOLUME 90.5 fl (80.0-94.0); MEAN CORPUSCULAR HGB 30.2 pg (27.0-31.0); MEAN CORPUSCULAR HGB CONC 33.4 g/dl (33.0-37.0); MEAN PLATELET VOLUME 9.8 fl (9.6-12.3); MONO # 0.5 10*3/uL (0.1-1.0); MONO % 6.6 % (3.0-9.0); NEUT # 4.6 10*3/uL (2.3-7.9); NEUT % 57.9 % (47.0-73.0); PLATELET COUNT AUTOMATED 303 10*3/uL (130-400); RED BLOOD COUNT 4.96 10*6/uL (4.50-5.90); RED CELL DISTRI WIDTH 12.9 % (0-14.5); WHITE BLOOD COUNT 7.9 10*3/uL (4.8-10.8)
[2023-09-04 17:38] LABS: ALKALINE PHOSPHATASE 52 U/L (46-116); BUN 14 mg/dl (9-23); CHLORIDE 107 mmol/L (98-107); POTASSIUM 3.8 mmol/L (3.4-5.1); SGPT/ALT 42 U/L (10-49); TOTAL PROTEIN 8.1 gm/dL (6.0-8.0)
[2023-09-04 18:23] LABS: BILIRUBIN Negative (Negative); BLOOD Negative (Negative); CLARITY Clear (Clear); COLOR Yellow (Yellow); GLUCOSE Negative (Negative); KETONE 1+ (Negative); LEUKO ESTERASE Negative (Negative); NITRITE Negative (Negative)
[2023-09-04 18:37] LABS: BACTERIA TRACE; EPITHELIAL CELLS 0-2; RBC 0-2 rbc/hpf (0-2); WBC 0-2 wbc/hpf (0-5)
== END 2023-09-04 21:34 | disposition home or self-care (01) ==
LOC: ED 16:11
PROVIDERS: Internal Medicine
DX: R33.9 Retention of urine, unspecified (principal); N18.31 Chronic kidney disease, stage 3a; E78.5 Hyperlipidemia, unspecified; Z88.2 Allergy status to sulfonamides; Z88.8 Allergy status to other drugs, medicaments and biological substances; Z90.89 Acquired absence of other organs; Z98.890 Other specified postprocedural states

== ENCOUNTER 2025-01-19 09:57 | Emergency (ER) | payer OTHER ==
[~2025-01-19] VITALS: Ht 167.6 cm; Wt 155.1 kg
[2025-01-19] MEDS ORDERED: PERCOCET 5-3251 EACH PO (14:14)
== END 2025-01-19 14:43 | disposition home or self-care (01) ==
LOC: ED 09:57
DX: S22.32XA Fracture of one rib, left side, initial encounter for closed fracture (principal); M25.512 Pain in left shoulder; M25.562 Pain in left knee; E78.5 Hyperlipidemia, unspecified; Z88.2 Allergy status to sulfonamides; Z88.8 Allergy status to other drugs, medicaments and biological substances; Z90.89 Acquired absence of other organs; Z98.890 Other specified postprocedural states; V49.9XXA Car occupant (driver) (passenger) injured in unspecified traffic accident, initial encounter; Y93.89 Activity, other specified; Y92.410 Unspecified street and highway as the place of occurrence of the external cause; Y99.8 Other external cause status

== ENCOUNTER 2025-11-17 00:01 | Emergency (ER) | payer OTHER ==
[~2025-11-17] VITALS: Ht 180.3 cm; Wt 158.8 kg
[~2025-11-17 00:01] MED LIST changes: +PERCOCET 5-3251 EACH PO
[2025-11-17 00:40] LABS: MEAN CELL VOLUME 88.4 fl (80.0-94.0); MEAN CORPUSCULAR HGB 30.2 pg (27.0-31.0); MEAN PLATELET VOLUME 10.2 fl (9.6-12.3); NUCLEATED RED BLOOD CELL 0.0 % (0.0-0.0); NUCLEATED RED BLOOD CELL 0.0 10*3/uL (0.0-0.0); PLATELET COUNT AUTOMATED 255 10*3/uL (130-400); RED CELL DISTRI WIDTH 14.3 % (0-14.5)
[2025-11-17 00:51] LABS: MANUAL DIFF REFLEX YES
[2025-11-17 01:02] LABS: BUN 16 mg/dl (9-23)
[2025-11-17 01:57] LABS: PLATELET SUFFICIENCY NORMAL (NORMAL)
[2025-11-17 02:59] LABS: BILIRUBIN 1+ (Negative); BLOOD Negative (Negative); CLARITY Clear (Clear); COLOR Dark Yellow (Yellow); KETONE Trace (Negative); LEUKO ESTERASE Trace (Negative); NITRITE Negative (Negative); PH 5.5 (4.5-8.0); SPECIFIC GRAVITY >= 1.030 (1.001-1.030); UROBILINOGEN 1.0 E.U./dl (0.0-1.0)
[2025-11-17 03:53] LABS: BACTERIA 1+
[2025-11-17] MEDS ORDERED: PREDNISONE20 M1 PO (04:09)
== END 2025-11-17 04:18 | disposition home or self-care (01) ==
LOC: ED 00:01
PROVIDERS: Internal Medicine
DX: B34.9 Viral infection, unspecified (principal); R53.83 Other fatigue; E78.5 Hyperlipidemia, unspecified; Z20.822 Contact with and (suspected) exposure to COVID-19; Z90.89 Acquired absence of other organs; Z98.890 Other specified postprocedural states; Z88.2 Allergy status to sulfonamides; Z88.8 Allergy status to other drugs, medicaments and biological substances